=== PATIENT | male | born 1990 ===

== ENCOUNTER → 2025-04-29 07:43 | Outpatient (CLI) | payer OTHER ==
[2025-04-29 09:09] LABS: BASO % 0.5 % (0.1-1.2); EOS # 0.17 (0.04-0.54); EOS % 4.4 % (0.7-7.0); LYMPH # 1.45 (1.18-3.74); LYMPH % 37.6 % (19.3-53.1); MEAN PLATELET VOLUME 11.30 fl (9.4-12.4); MONO # 0.32 (0.24-0.82); MONO % 8.3 % (4.7-12.5); NEUT # 1.90 (1.56-6.13); NEUT % 49.2 % (34.0-71.1); RED CELL DISTRIBUTION WIDTH 13.2 % (11.6-14.4)
[2025-04-29 09:28] LABS: URINE APPEARANCE Clear; URINE BILIRRUBIN Negative (NEGATIVE); URINE BLOOD Negative; URINE COLOR Yellow; URINE GLUCOSE Negative (NEGATIVE); URINE KETONE Negative (NEGATIVE); URINE LEUKOCYTE Negative; URINE NITRATE Negative; URINE PROTEIN Negative (NEGATIVE); URINE UROBILINOGEN 0.2 E.U./dl
[2025-04-29 09:29] LABS: URINE RBC 5.2 uL (0.0-20.8); URINE WBC 1.8 uL (0.0-23.2)
[2025-04-29 09:35] LABS: URINE BACTERIA 3.5 uL (0.0-1933); URINE CAST 0.00 uL (0.0-1.40); URINE EPITHELIAL CELLS 1.0 uL (0.0-38.8)
[2025-04-29 09:37] LABS: CREATININE URINE RANDOM 187.0 MG/DL (30-125)
[2025-04-29 09:57] LABS: % SATURACION 15.6 % (20-50); ALT/SGPT 25.0 U/L (12-78); AST/SGOT 14.0 U/L (15-37); BILIRUBIN TOTAL 0.33 mg/dL (0.3-1.2); BUN CREA RATIO 16.0 (7.0-25.0); CREATININE SERUM 0.88 mg/dL (0.70-1.30); FE 55.0 ug/dl (65-175); GFR 99.13; GLOBULINA 3.2 G/DL (2.4-3.5); GLUCOSE FASTING 81.0 mg/dL (65-100); LDH 158.0 U/L (87-241); OSMOLALITY SERUM 283.0 MOSM/KG (275-295); T4 FREE 0.92 NG/ML (0.76-1.46); TSH 1.42 uIU/mL (0.358-3.74)
[2025-04-29 11:00] LABS: FOLIC ACID 9.26 ng/ml (4.78-20)
[2025-04-30 09:08] LABS: ANTI THYROID PEROXIDASE < 9 IU/mL (0-34)
== END | disposition home or self-care (01) ==
LOC: LAB 07:43
PROVIDERS: ATTEND Internal Medicine Hematology & Oncology
DX: D50.8 Other iron deficiency anemias (principal); D51.3 Other dietary vitamin B12 deficiency anemia; I10 Essential (primary) hypertension; R74.02 Elevation of levels of lactic acid dehydrogenase [LDH]; K76.89 Other specified diseases of liver; D55.0 Anemia due to glucose-6-phosphate dehydrogenase [G6PD] deficiency; D51.0 Vitamin B12 deficiency anemia due to intrinsic factor deficiency; E06.3 Autoimmune thyroiditis; E03.8 Other specified hypothyroidism; N39.0 Urinary tract infection, site not specified; R80.9 Proteinuria, unspecified; R94.4 Abnormal results of kidney function studies; D53.1 Other megaloblastic anemias, not elsewhere classified